=== PATIENT | female | born 1970 | race Caucasian/White ===

== ENCOUNTER 2017-10-13 16:27 | Observation (INO) | payer OTHER ==
[~2017-10-13] VITALS: Ht 157.5 cm; Wt 69.2 kg
[~2017-10-13 16:27] MED LIST: ACYC1CAP16 PO; AMBI10TA PO; AUGM875T PO; CELE40TA PO; CITA40 PO; HYDR-3535 PO; LORA-392 PO; PRED20 PO
[2017-10-13 16:39] VITALS: BP 139/66; PULSE 112; RESP 16; TEMP 97.9; O2SAT 97
[2017-10-13] MEDS ORDERED: SODIUM CHLOR 0.9% 1000 ML INJ 1,000 ML IV ONE (18:00)
--- NOTE | 2017-10-13 18:05 | PD ---
HPI Chief Complaint: Anxiety Time Seen by Provider: 17:31 Travel History International Travel<30 days: No Contact w/Intl Traveler<30days: No Traveled to known affect area: No History of Present Illness HPI Patient is a 46-year-old female who presents the emergency room with vague complaints. Patient reports that on Friday morning, she had right sided SI joint surgery. Reports that this time, her sedation seem to be different as she appeared to have vivid dreams during her surgery. Patient reports that she has not been feeling well since her surgery. Patient reports that she feels as if she is confused, reports that she is slurring her speech in her head although she is not slurring her speech in real life. Reports that she had an episode of nausea and vomiting which has since resolved. Reports that this morning, she felt weak and felt as if she could not get up to do her daily activities. Reports that she wanted to make a sandwich but could not physically get up to make herself a sandwich. She did drive herself to the hospital. Reports that prior to coming to the emergency room, she felt lightheaded and dizzy, reports that she doesn't feel really dizzy at this time. Reports "I just feel weak and not myself and I don't know why." PFSH Past Medical History Hx Anticoagulant Therapy: Yes (asa 81mg) Autoimmune Disease: No Anxiety: Yes Depression: Yes Cancer: Yes (CERVICAL 1990) Cardiovascular Problems: No Diabetes: No Endocrine: No GERD: Yes Hepatitis: No Hiatal Hernia: No Immune Disorder: No Psychiatric: Yes (manic depressive on medication) Respiratory: Yes (SLEEP APNEA, C PAP) Seizures: Yes Sleep Apnea: Yes (C Pap) Thyroid Disease: No PNEUMOCCOCAL Vaccine (Year): 2 ?: Not Past Surgical History Abdominal Surgery: Yes (gall bladder 2010) Cholecystectomy: Yes Genitourinary Surgery: Yes Gynecologic Surgery: Yes (HYSTERECTOMY, LAPAROSCOPY) Hysterectomy: Yes Neurologic Surgery: Yes (ULNAR NERVE REROUTING RIGHT CTR) Oral Surgery: Yes (TONILLECTOMY) Other Surgery: Yes (LAPAROSCOPY ) Social History Alcohol Use: No Tobacco Use: No Substance Use: No Allergies-Medications (Allergen,Severity, Reaction): Coded Allergies: tizanidine (Unverified Allergy, Severe, HIVES, SOB, 10/13/17) Reported Meds & Prescriptions Reported Meds & Active Scripts Active Lortab 10 mg/325 mg (Hydrocodone/Acetaminophen 10 mg/325 mg) 1 Tab 1 Tab PO Q4HR PRN Reported Celexa 40 Mg Tab (Citalopram Hydrobromide) 40 Mg Tab 40 Mg PO HS Ativan (Lorazepam) 0.5 Mg Tab 0.5 Mg PO BID Augmentin 875 mg Tab (Amoxicillin & Pot Clavulanate 875 mg Tab) 875 Mg Tab 875 Mg PO BID Deltasone 20 Mg Tab (Prednisone) 20 Mg Tab 20 Mg PO DAILY Zovirax 200 Mg Cap (Acyclovir) 200 Mg Cap 200 Mg PO 5 TIMES A DAY Ambien (Zolpidem Tartrate) 10 Mg Tab 10 Mg PO HSPRN INSOMNIA Celexa (Citalopram Hydrobromide) 40 Mg Tab 40 Mg PO DAILY Review of Systems General / Constitutional: No: Fever Eyes: No: Visual changes HENT: Positive: Headaches, Lightheadedness Cardiovascular: No: Chest Pain or Discomfort Respiratory: No: Shortness of Breath Gastrointestinal: Positive: Nausea, Vomiting, No: Abdominal Pain Genitourinary: No: Dysuria Musculoskeletal: Positive: Weakness, No: Pain Skin: No Rash Neurologic: Positive: Weakness, Dizziness, No: Headache Psychiatric: No: Depression Endocrine: No: Polydipsia Hematologic/Lymphatic: No: Easy Bruising Physical Exam Narrative GENERAL: mild distress SKIN: Focused skin assessment warm/dry. HEAD: Atraumatic. Normocephalic. EYES: Pupils equal and round. No scleral icterus. No injection or drainage. ENT: No nasal bleeding or discharge. Mucous membranes pink and moist. NECK: Trachea midline. No JVD. CARDIOVASCULAR: Regular rate and rhythm. No murmur appreciated. RESPIRATORY: No accessory muscle use. Clear to auscultation. Breath sounds equal bilaterally. GASTROINTESTINAL: Abdomen soft, non-tender, nondistended. Hepatic and splenic margins not palpable. MUSCULOSKELETAL: No obvious deformities. No clubbing. No cyanosis. No edema. NEUROLOGICAL: Awake and alert. No obvious cranial nerve deficits. Motor grossly within normal limits. Normal speech. PSYCHIATRIC: Appropriate mood and affect; insight and judgment normal. Data Data Last Documented VS Vital Signs Date Time Temp Pulse Resp B/P (MAP) Pulse Ox O2 Delivery O2 Flow Rate FiO2 10/13/17 18:25 95 Room Air 10/13/17 16:39 97.9 112 16 139/66 (90) Orders Orders Prothrombin Time / Inr (Pt) (10/13/17 17:59) Act Partial Throm Time (Ptt) (10/13/17 17:59) Complete Blood Count With Diff (10/13/17 17:59) Comprehensive Metabolic Panel (10/13/17 17:59) Creatine Kinase (Cpk) (10/13/17 17:59) Drug Screen, Random Urine (10/13/17 17:59) Troponin I (10/13/17 17:59) Urinalysis - C+S If Indicated (10/13/17 17:59) Ct Brain W/O Iv Contrast(Rout) (10/13/17 17:59) Chest, Single Ap (10/13/17 17:59) Ecg Monitoring (10/13/17 17:59) Iv Access Insert/Monitor (10/13/17 17:59) Oximetry (10/13/17 17:59) Sodium Chlor 0.9% 1000 Ml Inj (Ns 1000 M (10/13/17 18:00) D-Dimer (10/13/17 17:59) Labs Laboratory Tests Test 10/13/17 18:20 10/13/17 18:25 Urine Barbiturates Screen NEG Urine Benzodiazepines Screen POS White Blood Count 9.3 TH/MM3 Red Blood Count 3.21 MIL/MM3 Hemoglobin 9.8 GM/DL Hematocrit 29.7 % Mean Corpuscular Volume 92.6 FL Mean Corpuscular Hemoglobin 30.6 PG Mean Corpuscular Hemoglobin Concent 33.0 % Red Cell Distribution Width 11.8 % Platelet Count 286 TH/MM3 Mean Platelet Volume 6.7 FL Neutrophils (%) (Auto) 77.4 % Lymphocytes (%) (Auto) 14.5 % Monocytes (%) (Auto) 7.7 % Eosinophils (%) (Auto) 0.3 % Basophils (%) (Auto) 0.1 % Neutrophils # (Auto) 7.2 TH/MM3 Lymphocytes # (Auto) 1.4 TH/MM3 Monocytes # (Auto) 0.7 TH/MM3 Eosinophils # (Auto) 0.0 TH/MM3 Basophils # (Auto) 0.0 TH/MM3 CBC Comment DIFF FINAL Differential Comment Sodium Level 141 MEQ/L Potassium Level 3.3 MEQ/L Chloride Level 103 MEQ/L MDM Medical Decision Making Medical Screen Exam Complete: Yes Emergency Medical Condition: Yes Medical Record Reviewed: Yes Interpretation(s) EKG at 1741: Sinus tach at 101bpm, qt/qtc: 362/420, st seg depression V1-V3 wtih t wave inversion - change from previous ekg Vital Signs Date Time Temp Pulse Resp B/P (MAP) Pulse Ox O2 Delivery O2 Flow Rate FiO2 10/13/17 16:39 97.9 112 16 139/66 (90) 97 Differential Diagnosis ACS, arrhythmia, hypothyroidism, electrolyte abnormality, CVA, TIA Narrative Course During the course of the patients emergency department visit, the patients history, examination, and differential diagnosis were reviewed with the patient. The patient was placed on a cardiac monitor technician with oximetry and frequent blood pressure monitoring. The patient had an IV access obtained and blood work sent for analysis. Patient's EKG shows st seg depression with t wave inversions - this is a change from previous ekgs labs and studies are pending, patient will be signed out to care of Dr. Samano at change of shift Diagnosis Primary Impression: Acute electrocardiogram changes Admitting Information Admitting Physician Requests: Observation Yael Antonio DO Oct 13, 2017 18:05
[2017-10-13 18:25] VITALS: O2SAT 95
[2017-10-13 18:41] LABS: AUTOMATED NEUTROPHIL # 7.2 TH/MM3 (1.8-7.7); BASOPHIL % 0.1 % (0.0-2.0); EOSINOPHIL % 0.3 % (0.0-4.0); HEMATOCRIT 29.7 % (35.0-46.0); HEMOGLOBIN 9.8 GM/DL (11.6-15.3); LYMPH % 14.5 % (9.0-44.0); LYMPHOCYTE # 1.4 TH/MM3 (1.0-4.8); MEAN CELL VOLUME 92.6 FL (80.0-100.0); MEAN CORPUSCULAR HEMOGLOBIN 30.6 PG (27.0-34.0); MEAN PLATELET VOLUME 6.7 FL (7.0-11.0); MONO % 7.7 % (0.0-8.0); MONOCYTE # 0.7 TH/MM3 (0-0.9); NEUT % 77.4 % (16.0-70.0); PLATELET COUNT 286 TH/MM3 (150-450); RED BLOOD COUNT 3.21 MIL/MM3 (4.00-5.30); RED CELL DISTRIBUTION WIDTH 11.8 % (11.6-17.2); WHITE BLOOD COUNT 9.3 TH/MM3 (4.0-11.0)
[2017-10-13 18:44] LABS: BILIRUBIN, URINE NEG (NEG); BLOOD, URINE NEG (NEG); GLUCOSE,URINE NEG (NEG); KETONE, URINE NEG (NEG); NITRITE,URINE NEG (NEG); PH, URINE 5.5 (5.0-8.5); URINE COLOR YELLOW (YELLW/STRAW); URINE LEUKOCYTE ESTERASE NEG (NEG)
[2017-10-13 18:50] LABS: CHLORIDE 103 MEQ/L (98-107); SODIUM (NA) 141 MEQ/L (136-145)
[2017-10-13 18:51] LABS: BACTERIA, URINE FEW /hpf; SQUAMOUS EPITHELIAL CELL URINE 0-5 /hpf (0-5); WBC, URINE 0-2 /hpf (0-5)
[2017-10-13 18:52] LABS: CALCIUM 9.1 MG/DL (8.5-10.1)
[2017-10-13 18:53] LABS: ALBUMIN 3.1 GM/DL (3.4-5.0); BICARBONATE 28.3 MEQ/L (21.0-32.0); BLOOD UREA NITROGEN 9 MG/DL (7-18); GLUCOSE,RANDOM 122 MG/DL (74-106)
[2017-10-13 18:56] LABS: ALT (GPT) 23 U/L (10-53); AST (GOT) 27 U/L (15-37); CREATININE 0.84 MG/DL (0.50-1.00); GLOMERULAR FILTRATION RATE 72 ML/MIN (>89)
[2017-10-13 18:57] LABS: INTERNATIONAL NORMALIZED RATIO 1.1 RATIO; PROTHROMBIN TIME - PATIENT 10.7 SEC (9.8-11.6)
[2017-10-13 18:58] LABS: D-DIMER 1.82 MG/L FEU (0.00-0.50); TOTAL BILIRUBIN ADULT 0.4 MG/DL (0.2-1.0); TOTAL PROTEIN 7.2 GM/DL (6.4-8.2)
[2017-10-13] MEDS ORDERED: CELE20TA PO (18:58)
[2017-10-13] MEDS ORDERED: XANA1TAB2 PO (18:58)
[2017-10-13] MEDS ORDERED: HYDR-3580 PO (18:58)
[2017-10-13 18:59] LABS: ALKALINE PHOSPHATASE 107 U/L (45-117)
[2017-10-13 19:01] LABS: TROPONIN I LESS THAN 0.02 NG/ML (0.02-0.05)
--- NOTE | 2017-10-13 19:04 | RADRPT ---
EXAM DATE: 10/13/2017 6:59 PM EDT AGE/SEX: 46 years / Female INDICATIONS: Shaky and restless. CLINICAL DATA: This is the patient's initial encounter. Patient reports that signs and symptoms have been present for 1 day and indicates a pain score of 0/10. MEDICAL/SURGICAL HISTORY: Carcinoma, cervical. Renal calculi. Anticoagulant therapy. Tonsillectom y. Cholecystectomy. Hysterectomy. RADIATION DOSE: 47.30 CTDI (mGy) COMPARISON: [facility], CT BRAIN W/O CONTRAST, 07/16/2011. . TECHNIQUE: CT of the head without contrast. Using automated exposure control and adjustment of the mA and/or kV according to patient size, radiation dose was kept as low as reasonably achievable to ob tain optimal diagnostic quality images. DICOM format image data is available electronically for revi ew and comparison. FINDINGS: Cerebrum: The ventricles are normal for age. No evidence of midline shift, mass lesion, hemorrhage or acute infarction. No extraaxial fluid collections are seen. Posterior Fossa: The cerebellum and brainstem are intact. The 4th ventricle is midline. The cerebe llopontine angle is unremarkable. Extracranial: The visualized portion of the orbits is intact. Skull: The calvaria is intact. No evidence of skull fracture. CONCLUSION: 1. No acute intracranial abnormalities. Electronically signed by: Efrain Zarate MD 10/13/2017 7:03 PM EDT
--- NOTE | 2017-10-13 19:10 | PD ---
Physical Exam Date Seen by Provider: Oct 13, 2017 Time Seen by Provider: 19:09 Narrative Accepted in transfer of care from Dr. Antonio GENERAL: Well-developed well-nourished female no acute distress no respiratory distress; GCS 15 SKIN: Warm and dry. HEAD: Normocephalic. EYES: No scleral icterus. No injection or drainage. ENT: Mucous membranes dry; airways patent NECK: Supple, trachea midline. No JVD or lymphadenopathy. CARDIOVASCULAR: Regular rate and rhythm without murmurs, gallops, or rubs. RESPIRATORY: Breath sounds equal bilaterally. No accessory muscle use. GASTROINTESTINAL: Abdomen soft, non-tender, nondistended. MUSCULOSKELETAL: No cyanosis, or edema. Bilateral radial dorsalis pedis pulses 2+ to palpation sensory exam grossly intact. Pelvis: Stable BACK: Nontender without obvious deformity. No CVA tenderness. Data Data Last Documented VS Vital Signs Date Time Temp Pulse Resp B/P (MAP) Pulse Ox O2 Delivery O2 Flow Rate FiO2 10/13/17 20:06 75 16 122/77 (92) 98 Room Air 10/13/17 16:39 97.9 Orders Orders Prothrombin Time / Inr (Pt) (10/13/17 17:59) Act Partial Throm Time (Ptt) (10/13/17 17:59) Complete Blood Count With Diff (10/13/17 17:59) Comprehensive Metabolic Panel (10/13/17 17:59) Creatine Kinase (Cpk) (10/13/17 17:59) Drug Screen, Random Urine (10/13/17 17:59) Troponin I (10/13/17 17:59) Urinalysis - C+S If Indicated (10/13/17 17:59) Ct Brain W/O Iv Contrast(Rout) (10/13/17 17:59) Chest, Single Ap (10/13/17 17:59) Ecg Monitoring (10/13/17 17:59) Iv Access Insert/Monitor (10/13/17 17:59) Oximetry (10/13/17 17:59) Sodium Chlor 0.9% 1000 Ml Inj (Ns 1000 M (10/13/17 18:00) D-Dimer (10/13/17 17:59) Urine Culture (10/13/17 18:20) CKMB (10/13/17 18:25) CKMB% (10/13/17 18:25) Ct Pulmonary Angiogram (10/13/17 18:59) Pelvis, Ap Only (Routine) (10/13/17 ) Place In Observation (10/13/17 ) Vital Signs (Adult) Q4H (10/13/17 20:47) Activity Oob Ad Holly (10/13/17 20:47) Class 1 Owner Operator / Telemetry .CONTINUOUS (10/13/17 20:47) Intake + Output FRANCHESCA.QSHIFT (10/13/17 20:47) Diet Npo (10/14/17 Breakfast) Sodium Chlor 0.9% 1000 Ml Inj (Ns 1000 M (10/13/17 20:47) Sodium Chloride 0.9% Flush (Ns Flush) (10/13/17 21:00) Sodium Chloride 0.9% Flush (Ns Flush) (10/13/17 21:00) Basic Metabolic Panel (Bmp) (10/14/17 06:00) Complete Blood Count With Diff (10/14/17 06:00) Pt Request For Service (10/13/17 20:47) Case Management Consult (10/13/17 20:47) Scd Bilateral/Knee High FRANCHESCA.BID (10/13/17 20:47) Naloxone Inj (Narcan Inj) (10/13/17 21:00) Troponin I (10/14/17 00:00) Troponin I (10/14/17 06:00) Creatine Kinase (Cpk) (10/14/17 00:00) Creatine Kinase (Cpk) (10/14/17 06:00) Electrocardiogram (10/14/17 00:00) Electrocardiogram (10/14/17 06:00) Potassium Chloride (Kcl) (10/13/17 21:00) Alprazolam (Xanax) (10/13/17 21:00) Citalopram (Celexa) (10/14/17 09:00) Acetamin-Hydrocod 325-7.5 Mg ([place] 7.5 (10/13/17 21:00) Admit Order (Ed Use Only) (10/13/17 ) Class 1 Owner Operator / Telemetry FRANCHESCA.Q8H (10/13/17 20:59) Activity Bed Rest (10/13/17 20:59) Notify Dr: Other (10/13/17 20:59) Labs Laboratory Tests Test 10/13/17 18:20 10/13/17 18:25 Urine Color YELLOW Urine Turbidity CLEAR Urine pH 5.5 Urine Specific [place] GREATER/EQUAL 1.030 Urine Protein NEG mg/dL Urine Glucose (UA) NEG mg/dL Urine Ketones NEG mg/dL Urine Occult Blood NEG Urine Nitrite NEG Urine Bilirubin NEG Urine Urobilinogen 0.2 MG/DL Urine Leukocyte Esterase NEG Urine WBC 0-2 /hpf Urine Squamous Epithelial Cells 0-5 /hpf Urine Bacteria FEW /hpf Microscopic Urinalysis Comment CATH-CULTURE IND Urine Opiates Screen POS Urine Barbiturates Screen NEG Urine Amphetamines Screen NEG Urine Benzodiazepines Screen POS Urine Cocaine Screen NEG Urine Cannabinoids Screen NEG White Blood Count 9.3 TH/MM3 Red Blood Count 3.21 MIL/MM3 Hemoglobin 9.8 GM/DL Hematocrit 29.7 % Mean Corpuscular Volume 92.6 FL Mean Corpuscular Hemoglobin 30.6 PG Mean Corpuscular Hemoglobin Concent 33.0 % Red Cell Distribution Width 11.8 % Platelet Count 286 TH/MM3 Mean Platelet Volume 6.7 FL Neutrophils (%) (Auto) 77.4 % Lymphocytes (%) (Auto) 14.5 % Monocytes (%) (Auto) 7.7 % Eosinophils (%) (Auto) 0.3 % Basophils (%) (Auto) 0.1 % Neutrophils # (Auto) 7.2 TH/MM3 Lymphocytes # (Auto) 1.4 TH/MM3 Monocytes # (Auto) 0.7 TH/MM3 Eosinophils # (Auto) 0.0 TH/MM3 Basophils # (Auto) 0.0 TH/MM3 CBC Comment DIFF FINAL Differential Comment Prothrombin Time 10.7 SEC Prothromb Time International Ratio 1.1 RATIO Activated Partial Thromboplast Time 28.5 SEC D-Dimer Quantitative (PE/DVT) 1.82 MG/L FEU Blood Urea Nitrogen 9 MG/DL Creatinine 0.84 MG/DL Random Glucose 122 MG/DL Total Protein 7.2 GM/DL Albumin 3.1 GM/DL Calcium Level 9.1 MG/DL Alkaline Phosphatase 107 U/L Aspartate Amino Transf (AST/SGOT) 27 U/L Alanine Aminotransferase (ALT/SGPT) 23 U/L Total Bilirubin 0.4 MG/DL Sodium Level 141 MEQ/L Potassium Level 3.3 MEQ/L Chloride Level 103 MEQ/L Carbon Dioxide Level 28.3 MEQ/L Anion Gap 10 MEQ/L Estimat Glomerular Filtration Rate 72 ML/MIN Total Creatine Kinase 444 U/L Creatine Kinase MB 0.6 NG/ML Creatine Kinase MB % 0.1 % Troponin I LESS THAN 0.02 NG/ML [facility] Medical Record Reviewed: Yes Supervised Visit with ALICIA: No Interpretation(s) EKG sinus tachycardia rate 100 ST segment depression inversion anteriorly no acute ST elevation Last Impressions CT Angiography 10/13/171858 Signed Impressions: CONCLUSION: 1. Negative for pulmonary embolus. No lung consolidation or effusion. No adeno jeff. Head CT 10/13/171758 Signed Impressions: CONCLUSION: 1. No acute intracranial abnormalities. Chest X-Ray 10/13/[id number] Signed Impressions: CONCLUSION: No acute findings. CBC & BMP Diagram 10/13/17 18:25 Total Protein 7.2, Albumin 3.1 L, Calcium Level 9.1, Alkaline Phosphatase 107, Aspartate Amino Transf (AST/SGOT) 27, Alanine Aminotransferase (ALT/SGPT) 23, Total Bilirubin 0.4 Vital Signs Date Time Temp Pulse Resp B/P (MAP) Pulse Ox O2 Delivery O2 Flow Rate FiO2 10/13/17 18:25 95 Room Air 10/13/17 16:39 97.9 112 16 139/66 (90) 97 Pelvis XR: FINDINGS: Previous fusion surgically across the sacroiliac joints with metal prostheses present. No acute fracture or dislocation. No bony destructive changes or abnormal periosteal reaction. CONCLUSION: No acute findings. Electronically signed by: Efrain Zarate MD 10/13/2017 8:28 PM EDT Differential Diagnosis Accepted in transfer of care from Dr. Antonio; please refer to her dictation Narrative Course Accepted in transfer of care from Dr. Antonio; follow up pending diagnostics At 8 PM patient is informed of imaging results and lab results states that she just has not felt right since her SI joint fusion on Friday. Patient states she is seen in clinic here in the [facility] area but her surgeon does his procedures and [place] so she drove to [facility] on Friday to have the procedure and came back by Friday evening 9 PM. Since Friday she has not felt herself Friday she felt as if she was having slurring of speech. Patient has been taking hydrocodone which has been prescribed for her and took her last dose of Xanax 0.5 mg Friday morning. Patient states that she does have a refill prescription to fill for Xanax which she planned on having filled this evening when she left the hospital. Patient states that she still does not feel quite back to her normal and reports that she did actually fall 4 times today landing on her hip but denies specific hip pain does not complain of increased pain to the right SI joint where she underwent fusion on Friday. Patient is aware that she does have anemia and states that she takes iron supplements with multivitamin also is aware that she had concentrated urine and specific gravity is greater than 1.030 also is informed that her CT brain noncontrast reveals no acute abnormality and CT pulmonary angiogram was negative for PE. Patient is also aware that her EKG is remarkable for some concerning ST segment flattening and depression for possible ischemia denies any chest pain or shortness of breath. Patient's had no nausea or vomiting although was nauseated after her procedure. No prior history of cardiac disease reported. Patient does not report history of hypertension dyslipidemia diabetes tobaccoism or CAD. Prior EKG was 06/2011. Patient discussed with [facility] MD Dr Sparrow ---OBS w/ monitor and serial enzymes Physician Communication Physician Communication call placed to [facility] service --obs per Dr Sparrow Diagnosis Primary Impression: Acute electrocardiogram changes Additional Impressions: Altered mental status, unspecified Qualified Codes: R41.82 - Altered mental status, unspecified Adverse drug effect Qualified Codes: T50.905A - Adverse effect of unspecified drugs, medicaments and biological substances, initial encounter Use of opiates for therapeutic purposes History of benzodiazepine use Anemia Admitting Information Admitting Physician Requests: Observation Mary Samano MD Oct 13, 2017 19:10
--- NOTE | 2017-10-13 19:14 | RADRPT ---
EXAM DATE: 10/13/2017 6:42 PM EDT AGE/SEX: 46 years / Female INDICATIONS: Weakness and lethargic since Friday. CLINICAL DATA: This is the patient's initial encounter. Patient reports that signs and symptoms have been present for 4 - 6 days and indicates a pain score of 0/10. MEDICAL/SURGICAL HISTORY: . No pertinent history. . No pertinent history. COMPARISON: No prior exams available for comparison. FINDINGS: A single AP view of the chest demonstrates the lungs to be symmetrically aerated without evidence of mass, infiltrate or effusion. The cardiomediastinal contours are unremarkable. Osseous structures a re intact. CONCLUSION: No acute findings. Electronically signed by: Efrain Zarate MD 10/13/2017 7:13 PM EDT
--- NOTE | 2017-10-13 19:47 | RADRPT ---
EXAM DATE: 10/13/2017 7:18 PM EDT AGE/SEX: 46 years / Female INDICATIONS: Shaky and restless; rule out pulmonary embolus. CLINICAL DATA: This is the patient's initial encounter. Patient reports that signs and symptoms have been present for 1 day and indicates a pain score of 0/10. MEDICAL/SURGICAL HISTORY: Renal calculi. Hysterectomy. Cholecystectomy. Tonsillectomy. RADIATION DOSE: 14.11 CTDI (mGy) COMPARISON: No prior exams available for comparison. TECHNIQUE: Volumetric scanning was performed using a multi-row detector CT scanner during bolus infu uzma of 65 ml Omnipaque 350 (iohexol) nonionic water-soluble contrast as a single exam dose. The pranav a was post processed with a variety of visualization algorithms including full volume maximum intensi ty projection and sliding thin slab reformation. Using automated exposure control and adjustment of the mA and/or kV according to patient size, radiation dose was kept as low as reasonably achievable t o obtain optimal diagnostic quality images. DICOM format image data is available electronically for review and comparison. FINDINGS: No focal lung consolidation or effusion. There is no hilar, mediastinal or axillary adenopathy. Minim al dependent atelectasis in the lungs. CONCLUSION: 1. Negative for pulmonary embolus. No lung consolidation or effusion. No adenopathy. Electronically signed by: Efrain Zarate MD 10/13/2017 7:46 PM EDT
[2017-10-13 20:06] VITALS: BP 122/77; PULSE 75; RESP 16; O2SAT 98
--- NOTE | 2017-10-13 20:29 | RADRPT ---
EXAM DATE: 10/13/2017 8:20 PM EDT AGE/SEX: 46 years / Female INDICATIONS: Patient complains of being shaky and restless. Multiple falls since having bilateral SI joint fusions done on Friday. CLINICAL DATA: This is the patient's initial encounter. Patient reports that signs and symptoms have been present for 4 - 6 days and indicates a pain score of 0/10. MEDICAL/SURGICAL HISTORY: . Renal calculi. . Bilateral SI joint fusions. Hysterectomy. Cholecy stectomy. Tonsillectomy. COMPARISON: No prior exams available for comparison. FINDINGS: Previous fusion surgically across the sacroiliac joints with metal prostheses present. No acute fract ure or dislocation. No bony destructive changes or abnormal periosteal reaction. CONCLUSION: No acute findings. Electronically signed by: Efrain Zarate MD 10/13/2017 8:28 PM EDT
[2017-10-13] MEDS ORDERED: SODIUM CHLORIDE 0.9% FLUSH 10 ML FLUSH IV FLUSH PRN (21:00)
[2017-10-13] MEDS ORDERED: NALOXONE HCL 0.4 MG/ML AMP IV PUSH PRN (21:00)
[2017-10-13] MEDS ORDERED: SODIUM CHLOR 0.9% 1000 ML INJ 1,000 ML IV SCH (21:00)
[2017-10-13] MEDS ORDERED: POTASSIUM CHLORIDE 10 MEQ CONTROLLED RELEASE TAB PO ONE (21:00)
[2017-10-13 21:10] VITALS: BP 133/77; PULSE 86
[2017-10-13] MEDS: SODIUM CHLORIDE 0.9% FLUSH 10 ML FLUSH IV FLUSH SCH (21:18)
[2017-10-13] MEDS: ACETAMINOPHEN/HYDROcodone 325 MG/7.5 MG TAB PO PRN (22:31)
[2017-10-13 22:46] VITALS: BP 130/77; PULSE 92; RESP 20; TEMP 99.4; O2SAT 99
[2017-10-13] MEDS: ALPRAZolam 1 MG TAB PO PRN (23:00)
[2017-10-13 23:46] VITALS: PULSE 81
[2017-10-14 00:36] LABS: TROPONIN I LESS THAN 0.02 NG/ML (0.02-0.05)
[2017-10-14 04:00] VITALS: BP 126/74; PULSE 83; RESP 20; TEMP 97.2; O2SAT 100
[2017-10-14] MEDS: ACETAMINOPHEN/HYDROcodone 325 MG/7.5 MG TAB PO PRN (06:09)
[2017-10-14 06:37] LABS: AUTOMATED NEUTROPHIL # 4.2 TH/MM3 (1.8-7.7); BASOPHIL % 0.4 % (0.0-2.0); EOSINOPHIL # 0.2 TH/MM3 (0-0.4); EOSINOPHIL % 3.5 % (0.0-4.0); HEMATOCRIT 26.3 % (35.0-46.0); HEMOGLOBIN 8.9 GM/DL (11.6-15.3); LYMPH % 29.2 % (9.0-44.0); MEAN CELL VOLUME 91.5 FL (80.0-100.0); MEAN CORPUSCULAR HEMOGLOBIN 30.9 PG (27.0-34.0); MEAN CORPUSCULAR HGB CONC 33.8 % (32.0-36.0); MEAN PLATELET VOLUME 7.7 FL (7.0-11.0); MONO % 8.4 % (0.0-8.0); MONOCYTE # 0.6 TH/MM3 (0-0.9); NEUT % 58.5 % (16.0-70.0); PLATELET COUNT 268 TH/MM3 (150-450); RED BLOOD COUNT 2.87 MIL/MM3 (4.00-5.30); RED CELL DISTRIBUTION WIDTH 12.2 % (11.6-17.2)
[2017-10-14 06:45] LABS: CHLORIDE 110 MEQ/L (98-107); SODIUM (NA) 144 MEQ/L (136-145)
[2017-10-14 07:00] VITALS: PULSE 82
[2017-10-14 07:05] LABS: BICARBONATE 26.3 MEQ/L (21.0-32.0); BLOOD UREA NITROGEN 8 MG/DL (7-18); CALCIUM 8.1 MG/DL (8.5-10.1); CREATININE 0.56 MG/DL (0.50-1.00); GLOMERULAR FILTRATION RATE 116 ML/MIN (>89); GLUCOSE,RANDOM 87 MG/DL (74-106); TROPONIN I LESS THAN 0.02 NG/ML (0.02-0.05)
[2017-10-14 07:30] VITALS: BP 125/74; PULSE 82; RESP 18; TEMP 98.2; O2SAT 95
[2017-10-14] MEDS ORDERED: CITALOPRAM HYDROBROMIDE 20 MG TAB PO SCH (09:00)
[2017-10-14] MEDS: SODIUM CHLORIDE 0.9% FLUSH 10 ML FLUSH IV FLUSH SCH (09:00)
[2017-10-14] MEDS: ALPRAZolam 1 MG TAB PO PRN (09:43)
--- NOTE | 2017-10-14 10:53 | HHI.HP ---
[facility] Primary [facility] Physician Mer Mendoza MD Admission Diagnosis AMS r/o adverse medication/anesthesia reaction; abnormal ekg Diagnoses: Chief Complaint: Confusion Travel History International Travel<30 Days: No Contact w/Intl Traveler <30 Da: No Traveled to Known Affected Are: No History of Present Illness Ms. Rausch is a pleasant 46-year-old female with a history of right-sided SI joint surgery on 10/10/2017 who presented to the emergency department on 10/13/2017 because she felt confused and generalized unwell feeling. After her surgery on Friday she slept most of the weekend. She reports that she did not eat or drink well. On 10/13/2017, she felt somewhat dizzy and lightheaded. She felt very weak. She denies any chest pain, shortness of breath, fever or chills. No cough or abdominal pain. No changes in bowel or bladder habits. At the time of this interview on 10/14/2017, patient feels back to her baseline. She is tolerating diet well. She does not have any further lightheadedness or dizziness. Review of Systems Except as stated in HPI: all other systems reviewed are Neg Past Family Social History Past Medical History Anxiety, depression, sleep apnea, GERD Past Surgical History Cholecystectomy, hysterectomy, ulnar nerve surgery, tonsillectomy Reported Medications Lortab 10 mg/325 mg (Hydrocodone/Acetaminophen 10 mg/325 mg) 1 Tab 1 Tab PO Q4HR PRN Reported Celexa 40 Mg Tab (Citalopram Hydrobromide) 40 Mg Tab 40 Mg PO HS Ativan (Lorazepam) 0.5 Mg Tab 0.5 Mg PO BID Augmentin 875 mg Tab (Amoxicillin & Pot Clavulanate 875 mg Tab) 875 Mg Tab 875 Mg PO BID Deltasone 20 Mg Tab (Prednisone) 20 Mg Tab 20 Mg PO DAILY Zovirax 200 Mg Cap (Acyclovir) 200 Mg Cap 200 Mg PO 5 TIMES A DAY Ambien (Zolpidem Tartrate) 10 Mg Tab 10 Mg PO HSPRN INSOMNIA Celexa (Citalopram Hydrobromide) 40 Mg Tab 40 Mg PO DAILY Allergies: Coded Allergies: tizanidine (Unverified Allergy, Severe, HIVES, SOB, 10/13/17) Family History No cancer, heart disease, Alzheimer's or Parkinson's. Social History Patient denies using tobacco, alcohol, illicit drugs. Physical Exam Vital Signs Vital Signs Date Time Temp Pulse Resp B/P (MAP) Pulse Ox O2 Delivery O2 Flow Rate FiO2 10/14/17 07:30 98.2 82 18 125/74 (91) 95 10/14/17 07:09 20 10/14/17 07:00 82 10/14/17 04:00 97.2 83 20 126/74 (91) 100 10/13/17 23:46 81 10/13/17 22:46 99.4 92 20 130/77 (94) 99 10/13/17 22:29 10/13/17 21:10 86 133/77 (95) 10/13/17 20:06 75 16 122/77 (92) 98 Room Air 10/13/17 18:25 95 Room Air 10/13/17 16:39 97.9 112 16 139/66 (90) 97 Physical Exam GENERAL: This is a well-nourished, well-developed patient, in no apparent distress. SKIN: No rashes, ecchymoses or lesions. Warm and dry. HEAD: Atraumatic. Normocephalic. No temporal or scalp tenderness. EYES: Pupils equal round and reactive. No injection or drainage. ENT: Nose without bleeding, purulent drainage or septal hematoma. Airway patent. NECK: Trachea midline. No lymphadenopathy. Supple, nontender, no meningeal signs. CARDIOVASCULAR: Regular rate and rhythm without murmurs, gallops, or rubs. No JVD. RESPIRATORY: Clear to auscultation. Breath sounds equal bilaterally. No wheezes , rales, or rhonchi. GASTROINTESTINAL: Abdomen soft, non-tender, nondistended. No guarding. MUSCULOSKELETAL: Extremities without clubbing, cyanosis, or edema. NEUROLOGICAL: Awake and alert. Cranial nerves II through XII intact. No focal neurological deficits. Normal speech. Laboratory Laboratory Tests Test 10/13/17 18:20 10/13/17 18:25 10/14/17 00:00 10/14/17 05:53 Urine Color YELLOW Urine Turbidity CLEAR Urine pH 5.5 Urine Specific [place] GREATER/EQUAL 1.030 Urine Protein NEG Urine Glucose (UA) NEG Urine Ketones NEG Urine Occult Blood NEG Urine Nitrite NEG Urine Bilirubin NEG Urine Urobilinogen 0.2 Urine Leukocyte Esterase NEG Urine WBC 0-2 Urine Squamous Epithelial Cells 0-5 Urine Bacteria FEW Microscopic Urinalysis Comment CATH-CULTURE IND Urine Opiates Screen POS Urine Barbiturates Screen NEG Urine Amphetamines Screen NEG Urine Benzodiazepines Screen POS Urine Cocaine Screen NEG Urine Cannabinoids Screen NEG White Blood Count 9.3 7.0 Red Blood Count 3.21 2.87 Hemoglobin 9.8 8.9 Hematocrit 29.7 26.3 Mean Corpuscular Volume 92.6 91.5 Mean Corpuscular Hemoglobin 30.6 30.9 Mean Corpuscular Hemoglobin Concent 33.0 33.8 Red Cell Distribution Width 11.8 12.2 Platelet Count 286 268 Mean Platelet Volume 6.7 7.7 Neutrophils (%) (Auto) 77.4 58.5 Lymphocytes (%) (Auto) 14.5 29.2 Monocytes (%) (Auto) 7.7 8.4 Eosinophils (%) (Auto) 0.3 3.5 Basophils (%) (Auto) 0.1 0.4 Neutrophils # (Auto) 7.2 4.2 Lymphocytes # (Auto) 1.4 2.0 Monocytes # (Auto) 0.7 0.6 Eosinophils # (Auto) 0.0 0.2 Basophils # (Auto) 0.0 0.0 CBC Comment DIFF FINAL DIFF FINAL Differential Comment Prothrombin Time 10.7 Prothromb Time International Ratio 1.1 Activated Partial Thromboplast Time 28.5 D-Dimer Quantitative (PE/DVT) 1.82 Blood Urea Nitrogen 9 8 Creatinine 0.84 0.56 Random Glucose 122 87 Total Protein 7.2 Albumin 3.1 Calcium Level 9.1 8.1 Alkaline Phosphatase 107 Aspartate Amino Transf (AST/SGOT) 27 Alanine Aminotransferase (ALT/SGPT) 23 Total Bilirubin 0.4 Sodium Level 141 144 Potassium Level 3.3 3.9 Chloride Level 103 110 Carbon Dioxide Level 28.3 26.3 Anion Gap 10 8 Estimat Glomerular Filtration Rate 72 116 Total Creatine Kinase 444 318 254 Creatine Kinase MB 0.6 0.5 LESS THAN 0.5 Creatine Kinase MB % 0.1 0.2 0.2 Troponin I LESS THAN 0.02 LESS THAN 0.02 LESS THAN 0.02 Date/Time Source Procedure Growth Status 10/13/17 18:20 Urine Catheterized Urine Urine Culture Pending Received Result Diagram: 10/14/17 0553 10/14/17 [address] Angiography 10/13/17 1859 Signed Impressions: CONCLUSION: 1. Negative for pulmonary embolus. No lung consolidation or effusion. No adeno jeff. Head CT 10/13/171758 Signed Impressions: CONCLUSION: 1. No acute intracranial abnormalities. Chest X-Ray 10/13/171758 Signed Impressions: CONCLUSION: No acute findings. Pelvis X-Ray 10/13/17 0000 Signed Impressions: CONCLUSION: No acute findings. Caprini VTE Risk Assessment Caprini VTE Risk Assessment: No/Low Risk (score <= 1) Caprini Risk Assessment Model Point Value = 1 Point Value = 2 Point Value = 3 Point Value = 5 Age 41-60 Minor surgery BMI > 25 kg/m2 Swollen legs Varicose veins or History of unexplained or recurrent spontaneous Oral contraceptives or hormone replacement Sepsis (< 1 month) Serious lung disease, including pneumonia (< 1 month) Abnormal pulmonary function Acute myocardial infarction Congestive heart failure (< 1 month) History of inflammatory bowel disease Medical patient at bed rest Age 61-74 Arthroscopic surgery Major open surgery (> 45 min) Laparoscopic surgery (> 45 min) Malignancy Confined to bed (> 72 hours) Immobilizing plaster cast Central venous access Age >= 75 History of VTE Family history of VTE Factor V Leiden Prothrombin [id number] Lupus anticoagulant Anticardiolipin antibodies Elevated serum homocysteine Heparin-induced thrombocytopenia Other congenital or acquired thrombophilia Stroke (< 1 month) Elective arthroplasty Hip, pelvis, or leg fracture Acute spinal cord injury (< 1 month) Prophylaxis Regimen Total Risk Factor Score Risk Level Prophylaxis Regimen 0-1 Low Early ambulation 2 Moderate Order ONE of the following: *Sequential Compression Device (SCD) *Heparin 5000 units SQ BID 3-4 Higher Order ONE of the following medications: *Heparin 5000 units SQ TID *Enoxaparin/Lovenox 40 mg SQ daily (WT < 150 kg, CrCl > 30 mL/min) *Enoxaparin/Lovenox 30 mg SQ daily (WT < 150 kg, CrCl > 10-29 mL/min) *Enoxaparin/Lovenox 30 mg SQ BID (WT < 150 kg, CrCl > 30 mL/min) AND/OR *Sequential Compression Device (SCD) 5 or more Highest Order ONE of the following medications: *Heparin 5000 units SQ TID (Preferred with Epidurals) *Enoxaparin/Lovenox 40 mg SQ daily (WT < 150 kg, CrCl > 30 mL/min) *Enoxaparin/Lovenox 30 mg SQ daily (WT < 150 kg, CrCl > 10-29 mL/min) *Enoxaparin/Lovenox 30 mg SQ BID (WT < 150 kg, CrCl > 30 mL/min) AND *Sequential Compression Device (SCD) Assessment and Plan Problem List: (1) Dehydration ICD Code: E86.0 - Dehydration Assessment and Plan Ms. Rausch is a pleasant 46-year-old female with a recent SI joint surgery who presented to the emergency department due to confusion and generalized weakness as well as lightheadedness dizziness. She self reported that she did not eat or drink much after her surgery on Friday. Lab works in the emergency department indicated likely volume depletion. Likely dehydration -Patient did not eat or drink well after surgery. UA, blood work indicates volume depletion -Currently patient is back to her baseline. She denies any confusion, lightheadedness or dizziness. -Advised patient to take Xanax half the dose she takes. She takes 1 mg p.o. twice daily as needed -She is tolerating diet well. Full code. Ambulation. Discharge patient to home Condition on discharge: Improved Regular Diet as tolerated Ad Holly activity Rx written: Continue home medications. However recommended patient to take 0.5 mg of Xanax twice daily as needed. Follow-up with primary care physician within 1 week. Donell Horton DO Oct 14, 2017 10:53
[2017-10-14 11:30] VITALS: BP 145/80; PULSE 86; RESP 18; TEMP 98.4; O2SAT 100
--- NOTE | 2017-10-14 16:58 | EKG ---
Date Performed: 10/13/2017 Time Performed: 17:41:43 PTAGE: 46 years EKG: SINUS TACHYCARDIA ST DEVIATION AND MODERATE T-WAVE ABNORMALITY, CONSIDER ANTERIOR ISCHEMIA ABNORMAL ECG PREVIOUS TRACING : 07/16/2011 @15.40 Since the previous tracing, no significant change noted DOCTOR: Avni Caraballo Interpretating Date/Time 10/14/2017 16:56:23
--- NOTE | 2017-10-14 16:58 | EKG ---
Date Performed: 10/14/2017 Time Performed: 00:16:17 PTAGE: 46 years EKG: Sinus rhythm NONSPECIFIC T-WAVE ABNORMALITY BORDERLINE ECG PREVIOUS TRACING : 10/13/2017 17.41 Since the previous tracing, no significant change noted DOCTOR: Avni Caraballo Interpretating Date/Time 10/14/2017 16:56:33
--- NOTE | 2017-10-14 16:59 | EKG ---
Date Performed: 10/14/2017 Time Performed: 05:35:31 PTAGE: 46 years EKG: Sinus rhythm NORMAL ECG PREVIOUS TRACING : 10/14/2017 00.16 Since the previous tracing, no significant change noted DOCTOR: Avni Caraballo Interpretating Date/Time 10/14/2017 16:56:45
== END 2017-10-14 11:39 | disposition home or self-care (01) ==
LOC: PHED 16:27 → PHEDA 21:00 → PH3B 22:22
PROVIDERS: ADMIT Hospitalist; ATTEND Hospitalist
DX: F41.9 Anxiety disorder, unspecified (principal); R41.0 Disorientation, unspecified; R11.2 Nausea with vomiting, unspecified; R53.1 Weakness; R42 Dizziness and giddiness; Z79.82 Long term (current) use of aspirin; K21.9 Gastro-esophageal reflux disease without esophagitis; F31.9 Bipolar disorder, unspecified; G47.30 Sleep apnea, unspecified; R56.9 Unspecified convulsions; Z90.710 Acquired absence of both cervix and uterus; Z79.899 Other long term (current) drug therapy; F11.90 Opioid use, unspecified, uncomplicated; R00.0 Tachycardia, unspecified; D64.9 Anemia, unspecified; F13.90 Sedative, hypnotic, or anxiolytic use, unspecified, uncomplicated; T50.905A Adverse effect of unspecified drugs, medicaments and biological substances, initial encounter; R94.31 Abnormal electrocardiogram [ECG] [EKG]; E86.0 Dehydration; J98.11 Atelectasis
CPT/HCPCS: 70450; 71045; 71275; 72170; 80048; 80053; 80307; 81001; 82550; 82552; 84484; 85025; 85379; 85610; 85730; 87086; 93005; 96360; 96361; 97161; 99285; G0378; G8987; G8988; J7030